=== PATIENT | female | born 1995 | race Caucasian/White ===

== ENCOUNTER 2017-04-21 22:51 | Inpatient (IN) | payer OTHER, MEDICAID ==
[2017-04-22 01:39] LABS: ABSOLUTE BASOPHILS # (AUTO) 0.1 10^3/uL (0.0-0.2); ABSOLUTE LYMPHOCYTES (AUTO) 2.3 10^3/uL (0.5-4.7); ABSOLUTE MONOCYTES (AUTO) 0.8 10^3/uL (0.1-1.4); ABSOLUTE NEUT (AUTO) 8.8 10^3/uL (1.7-8.2); BASOPHILS % (AUTO) 0.6 % (0-2); EOSINOPHILS % (AUTO) 0.4 % (0-6); HEMATOCRIT 55.3 % (36.0-47.0); HEMOGLOBIN 18.2 g/dL (12.0-15.5); HGB HCT DIFFERENCE -0.7; MEAN CORPUSCULAR HEMOGLOBIN 32.9 pg (27.0-33.4); MEAN CORPUSCULAR HGB CONC 32.9 g/dL (32.0-36.0); MEAN CORPUSCULAR VOLUME 100 fl (80-97); MONOCYTES % (AUTO) 6.6 % (3-13); RED BLOOD COUNT 5.52 10^6/uL (3.72-5.28); RED CELL DISTRIBUTION WIDTH 13.4 % (11.5-14.0); SEGMENTED NEUTROPHILS % (AUTO) 73.4 % (42-78)
[2017-04-22 01:40] LABS: APPEARANCE,URINE CLEAR; BILIRUBIN,URINE NEGATIVE (NEGATIVE); GLUCOSE, URINE >=500 mg/dL (NEGATIVE); KETONES,URINE 80 mg/dL (NEGATIVE); LEUKOCYTE ESTERASE,URINE TRACE (NEGATIVE); NITRITE,URINE NEGATIVE (NEGATIVE); PROTEIN,URINE NEGATIVE (NEGATIVE); URINE SPECIFIC GRAVITY 1.028; UROBILINOGEN,URINE NEGATIVE mg/dL (<2.0)
[2017-04-22 01:50] LABS: ALANINE AMINOTRANSFERASE 24 U/L (9-52); ALBUMIN 5.1 g/dL (3.5-5.0); ALKALINE PHOSPHATASE 127 U/L (38-126); ASPARTATE AMINO TRANSFERASE 17 U/L (14-36); BILIRUBIN,DIRECT 0.5 mg/dL (0.0-0.4); BLOOD UREA NITROGEN 14 mg/dL (7-20); CHLORIDE 97 mmol/L (98-107); TOTAL PROTEIN 9.2 g/dL (6.3-8.2)
[2017-04-22 02:03] LABS: POTASSIUM 5.2 mmol/L (3.6-5.0); SODIUM 130.7 mmol/L (137-145)
[2017-04-22 02:13] LABS: ANION GAP 28 (5-19); GLUCOSE 620 mg/dL (75-110)
[2017-04-22] MEDS ORDERED: PANTOPRAZOLE SODIUM 40 MG VIAL IV ONE (02:13)
[2017-04-22] MEDS ORDERED: NORMAL SALINE 1000 ML 1,000 ML IV ONE ×2 (02:13→02:17)
[2017-04-22 02:14] LABS: CARBON DIOXIDE 6 mmol/L (22-30)
--- NOTE | 2017-04-22 02:14 | ER Document Report ---
ED GI/ - General Chief Complaint: Abdominal Pain Stated Complaint: ABDOMINAL PAIN/HEADACHE Time Seen by Provider: 04/22/17 02:03 Notes: Patient is a 21-year-old female that comes emergency department for chief complaint of feeling ill with nausea and stomach pain, frequent belching, and burning in her upper abdomen for the past week. She states she has not been able to eat much and she has lost about 20 pounds. She reports weakness and intermittent lightheadedness. She denies smoking, alcohol, any daily medications. LMP last month. Only past medical history reported is appendectomy. Denies recreational drugs. TRAVEL OUTSIDE OF THE [place] IN LAST 30 DAYS: No - Related Data Allergies/Adverse Reactions: No Known Allergies Allergy (Unverified 06/18/11 04:40) Home Medications: Current Home Medications No Home Medications 04/22/17 [History] Past Medical History - General Information source: Patient - Social History Smoking Status: Never Smoker Frequency of alcohol use: None Drug Abuse: None Lives with: Spouse/Significant other Family History: CAD, DM, Hypertension Patient has suicidal ideation: No Patient has homicidal ideation: No - Medical History Medical History: Negative Neurological Medical History: Denies: Hx Seizures Renal/ Medical History: Denies: Hx Peritoneal Dialysis Past Surgical History: Reports: Hx Appendectomy - Immunizations Immunizations up to date: Yes Hx Diphtheria, Pertussis, Tetanus Vaccination: Yes Review of Systems - Review of Systems Constitutional: No symptoms reported, See HPI EENT: No symptoms reported Cardiovascular: See HPI Respiratory: No symptoms reported Gastrointestinal: See HPI Genitourinary: No symptoms reported Female Genitourinary: No symptoms reported Musculoskeletal: No symptoms reported Skin: No symptoms reported Hematologic/Lymphatic: No symptoms reported Neurological/Psychological: See HPI Physical Exam - Vital signs Vitals: Temp Pulse Resp BP Pulse Ox 97.7 F 118 H 18 132/96 H 97 04/21/17 23:14 04/21/17 23:14 04/21/17 23:14 04/21/17 23:14 04/21/17 23:14 Interpretation: Normal - General General appearance: Other - Patient on well-appearing, she appears pale, cachectic, however she is alert and conversational - HEENT Head: Normocephalic, Atraumatic Eyes: Normal Conjunctiva: Normal Extraocular movements intact: Yes Eyelashes: Normal Pupils: PERRL Sinus: Normal Nasal: Normal Mouth/Lips: Normal Mucous membranes: Dry Pharynx: Normal Neck: Normal - Respiratory Respiratory status: No respiratory distress Chest status: Nontender Breath sounds: Normal Chest palpation: Normal - Cardiovascular Rhythm: Regular, Tachycardia Heart sounds: Normal auscultation, S1 appreciated, S2 appreciated Murmur: No - Abdominal Inspection: Normal Distension: No distension Bowel sounds: Normal Tenderness: Tender - Generalized abdominal tenderness, nonspecific, no guarding , no rebound tenderness Organomegaly: No organomegaly - Back Back: Normal, Nontender - Extremities General upper extremity: Normal inspection, Nontender, Normal color, Normal ROM , Normal temperature General lower extremity: Normal inspection, Nontender, Normal color, Normal ROM , Normal temperature, Normal weight bearing. No: Juan Jose's sign - Neurological Neuro grossly intact: Yes Cognition: Normal Orientation: AAOx4 Ricky Coma Scale Eye Opening: Spontaneous [place] Coma Scale Verbal: Oriented Ricky Coma Scale Motor: Obeys Commands Ricky Coma Scale Total: 15 Speech: Normal Motor strength normal: LUE, RUE, LLE, RLE Sensory: Normal - Psychological Associated symptoms: Normal affect, Normal mood - Skin Skin Temperature: Warm Skin Moisture: Dry Skin Color: Pale Course - Re-evaluation Re-evalutation: Tachycardic, very thin, pale. However she is alert, oriented, conversational. CBC showing elevated hemoglobin, ketones in the urine with elevated specific gravity, giving IVF. Chemistry concerning showing marked hyperglycemia, very low bicarbonate, anion gap that is elevated, consistent with DKA and previously undiagnosed diabetic. Patient will be started on insulin drip, IV fluids, because of patient's appearance, condition, and low bicarbonate patient will also be given a bolus of 1 amp of bicarbonate. Venous blood gas is still pending. This was confirmed with Dr. Pearson. Patient remains unchanged in appearance. Blood gas actually not quite as bad as it could be, shows metabolic acidosis with pH of 7.2. After beginning treatments, tachycardia resolved, patient already improved in appearance and not as pale. Discussed with Dr. Arriola, internal medicine, patient will be admitted to the hospital - Vital Signs Vital signs: Temp Pulse Resp BP Pulse Ox 98.0 F 91 16 103/63 100 04/22/17 05:56 04/22/17 05:56 04/22/17 05:56 04/22/17 05:56 04/22/17 05:56 - Laboratory Result Diagrams: 04/22/17 01:26 04/22/17 04:11 Laboratory results interpreted by me: 04/22/17 04/22/17 04/22/17 01:15 01:26 01:26 WBC 12.0 H RBC 5.52 H Hgb 18.2 H Hct 55.3 H MCV 100 H Absolute Neutrophils 8.8 H VBG pH VBG pCO2 VBG HCO3 Sodium 130.7 L Potassium 5.2 H Chloride 97 L Carbon Dioxide 6 L* Anion Gap 28 H Glucose 620 H* Direct Bilirubin 0.5 H Alkaline Phosphatase 127 H Total Protein 9.2 H Albumin 5.1 H Urine Glucose (UA) >=500 H Urine Ketones 80 H Ur Leukocyte Esterase TRACE H 04/22/17 02:39 WBC RBC Hgb Hct MCV Absolute Neutrophils VBG pH 7.20 L VBG pCO2 26.9 L VBG HCO3 10.2 L Sodium Potassium Chloride Carbon Dioxide Anion Gap Glucose Direct Bilirubin Alkaline Phosphatase Total Protein Albumin Urine Glucose (UA) Urine Ketones Ur Leukocyte Esterase Critical Care Note - Critical Care Note Total time excluding time spent on procedures (mins): 30 - Diabetic ketoacidosis , dehydration Comments: Please allow 30 minutes of critical care time for evaluation, management of patient with diabetic ketoacidosis, treatment with IV fluids, insulin drip, bicarbonate, multiple re-evaluations, consultation and admission to the hospital Discharge - Discharge Clinical Impression: Tachycardia, Dehydration DKA (diabetic ketoacidoses) Qualifiers: Diabetes mellitus type: due to underlying condition Diabetes mellitus complication detail: without coma Qualified Code(s): E08.10 - Diabetes mellitus due to underlying condition with ketoacidosis without coma Admitting Provider: Hospitalist Unit Admitted: IMCU
[2017-04-22] MEDS ORDERED: ONDANSETRON HCL INJ/PF 4 MG/2 ML SDV IV ONE (02:17)
[2017-04-22] MEDS ORDERED: NORMAL SALINE 100 ML with INSULIN REGULAR, HUMAN 100 UNIT IV PRN ×4 (02:18→05:26)
[2017-04-22] MEDS ORDERED: DEXTROSE 5%-WATER 1000 ML 1,000 ML with SODIUM BICARBONATE 50 MEQ IV PRN ×2 (02:21)
[2017-04-22 02:44] LABS: URINE BARBITURATES SCREEN NEGATIVE; URINE METHADONE SCREEN NEGATIVE; URINE OPIATES LOW NEGATIVE; URINE PHENCYCLIDINE SCREEN NEGATIVE
[2017-04-22 02:49] LABS: VENOUS BLOOD BASE EXCESS -15.9 mmol/L; VENOUS BLOOD HCO3 10.2 mmol/L (20-32); VENOUS BLOOD PCO2 26.9 mmHg (35-63); VENOUS BLOOD PH 7.2 (7.30-7.42)
[2017-04-22] MEDS ORDERED: SODIUM BICARBONATE 8.4% INJ 50 MEQ/50 ML DISP.SYRIN ONE (02:50)
[2017-04-22] MEDS ORDERED: INSULIN REG, HUMAN 100 UNIT/ML 3 ML VIAL (PYX) ONE (03:36)
[2017-04-22] MEDS ORDERED: NORMAL SALINE 1000 ML 1,000 ML IV PRN ×2 (04:01→04:15)
[2017-04-22] MEDS ORDERED: GLUCAGON,HUMAN RECOMB 1 MG INJ IM PRN ×3 (04:01→14:25)
[2017-04-22] MEDS ORDERED: DEXTROSE 50%-WATER 25 GM/50 ML DISP.SYRIN IV PRN ×6 (04:01→14:25)
[2017-04-22] MEDS ORDERED: DEXTROSE 40% GEL 15 GM TUBE PO PRN ×6 (04:01→14:25)
[2017-04-22] MEDS ORDERED: MAGNESIUM HYDROXIDE SUSP 30 ML UDCUP PO PRN (04:04)
[2017-04-22] MEDS ORDERED: MAG HYDROX/AL HYDROX/SIMETH SUSP 30 ML UDCUP PO PRN (04:04)
[2017-04-22] MEDS ORDERED: ACETAMINOPHEN 325 MG TABLET PO PRN (04:04)
[2017-04-22] MEDS ORDERED: DEXTROSE 5%-NORMAL SALINE 1,000 ML IV PRN (04:12)
[2017-04-22] MEDS ORDERED: PHARMACY COMMUNICATION ORDER MC SCH (04:15)
--- NOTE | 2017-04-22 04:25 | PDOC H&P ---
History of Present Illness Admission Date/PCP: 04/22/17 03:07 NONE Patient complains of: nausea, epig weight loss History of Present Illness: REJI JOHNSON is a 21 year old female with past medical history remarkable basically only for eczema, who presents to the emergency room for evaluation of approximately 1 week history of nausea, epigastric pain, frequent belching, along with a recent unintentional 20 pound weight loss, despite good appetite. No personal or family history of diabetes mellitus. Patient has been discussed with emergency room nurse practitioner who evaluated the patient. Abdominal discomfort increases occasionally with certain movements. She denies any "sore spots" anywhere on her body. No vomiting, diarrhea or dysuria, or cough. She is currently resting quietly, pain-free. Laboratory results are listed in [employer] and are reviewed. Chest x-ray pending. Social history/personal habits: Single. No children. 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 No use of alcohol tobacco or illicit drugs. No known drug allergies. Home medications none REVIEW OF SYSTEMS: Constitutional: See history and present illness. Eyes: No vision complaints. ENT: No swallowing problems or complaints. Denies hearing loss. Pulmonary: No current complaints. Cardiovascular: No current complaints, including chest pain. Gastrointestinal: See history and present illness. Skin: Mild eczema. Hematologic: Denies easy bruising. Neurologic: No current complaints, including numbness or tingling. Musculoskeletal: No current or chronic joint complaints, such as arthritis. Psychiatric: Denies anxiety or depression. Endocrine: polyuria. Genitourinary: No current complaints, including dysuria. PHYSICAL EXAMINATION: 5 feet 4 inches tall. 31 kg. BMI 11.7 kg/m. Blood pressure 117/81. Pulse 101 and regular. 100% saturation on room air. Respirations are 15 and unlabored. Temperature 97.7. Quite thin otherwise well-developed young female appearing approximately her stated age. Appears somewhat fatigued, and also to feel somewhat under the weather, so to speak. Otherwise, pleasant awake alert and cooperative. Boyfriend is present at her side; patient approves. Female emergency room nurse Tequila is present. Skin is warm and dry. No grossly obvious evidence of rash in areas of skin examined. No subcutaneous nodules palpated. ENT: Hearing grossly normal to normal conversation. Tongue midline on protrusion pink and slightly tacky. Eyes: No scleral icterus. Pupils equal and reactive to light at 4 mm. [place] conjunctivae. Neck is supple and nontender to gentle active range of motion and palpation. Midline trachea. No palpable thyroid nodule mass enlargement or tenderness. Lymphatic: No palpable cervical or clavicular nodes. Psychiatric: Reasonable insight into acute and chronic medical issues. Oriented to time location and why here. Lungs: Auscultation reveals clear and equal breath sounds bilaterally. No use of accessory respiratory muscles. Cardiovascular: Heart regular rate and rhythm, without gallop murmur or rub. No carotid or abdominal aortic bruits. No ankle or pedal edema. Faintly palpable dorsalis pedis pulses. Abdomen:soft slightly distended nontender with positive bowel sounds. Unable to adequately evaluate abdomen for masses or organomegaly due to distention. Extremities: Feet are warm and dry. No calf tenderness to compression. No grossly obvious visual evidence of calf swelling. Gentle manipulation of lower extremities fails to reveal any obvious evidence of injury or instability to knees hips or ankles. Neurologic: Moves upper extremities grossly normally. Patellar reflexes absent. Absent Babinski. Light touch is intact at feet. Dorsiflexion and plantarflexion of feet 5 / 5 and symmetric. Past Medical History Cardiac Medical History: Denies: Congestive Heart Failure, DVT, Myocardial Infarction, Hyperlipidema, Hypertension, Pulmonary Embolism Pulmonary Medical History: Denies: Asthma, Chronic Obstructive Pulmonary Disease (COPD) EENT Medical History: Denies: Eyes, Ears, Throat Neurological Medical History: Denies: Hemorrhagic CVA, Ischemic CVA, Seizures Endocrine Medical History: Denies: Hyperthyroidism, Hypothyroidism Renal/ Medical History: Reports: None GI Medical History: Denies: Cirrhosis, Gastroesophageal Reflux Disease, Hepatitis, Peptic Ulcer Disease Musculoskeltal Medical History: Denies: Arthritis Skin Medical History: Reports: Eczema - Mild Psychiatric Medical History: Denies: Alcohol Dependency, Depression, General Anxiety Disorder, Substance Abuse, Tobacco Dependency Hematology: Reports: None Infectious Medical History: Denies: Clostridium Difficile, Hepatitis B, Hepatitis C, Methicillin- Resistant Staph Aureus Past Surgical History Past Surgical History: Reports: Appendectomy, Tonsillectomy Social History Information Source: Patient, Emergency Med Personnel, [facility] Records Smoking Status: Unknown if Ever Smoked Frequency of Alcohol Use: None Drugs: None - Advance Directive Resuscitation Status: Full Code Surrogate healthcare decision maker:: Boyfriend's mother. Family History Family History: CAD, DM, Hypertension Parental Family History Reviewed: Yes - Uncertain health status of parents. Children Family History Reviewed: NA Sibling(s) Family History Reviewed.: Yes - Healthy Medication/Allergy Home Medications: Isopropyl Alcohol [Alcoh-Wipe] 1 each ASDIR PRN #100 towelette 04/26/17 Pen Needle, Diabetic [Insulin Pen Needle] 1 each ASDIR PRN #10 dis.needle RX: Acetaminophen [Tylenol Soln 325 mg/10.15 ml Udcup] 650 mg PO Q4HP PRN udc 04/26/17 RX: Insulin Glargine,Hum.rec.anlog [Lantus Insulin 100 Unit/mL] 20 unit SUBCUT Q12 #10 insuln.pen 04/26/17 RX: Insulin Lispro [Humalog Insulin (Lispro) 100 unit/mL] 8 unit SUBCUT AC #100 unit 04/26/17 Allergies/Adverse Reactions: No Known Allergies Allergy (Unverified 06/18/11 04:40) Physical Exam Vital Signs: Temp Pulse Resp BP Pulse Ox 97.7 F 118 H 13 117/81 100 04/21/17 23:14 04/21/17 23:14 04/22/17 03:45 04/22/17 03:01 04/22/17 03:45 Assessment & Plan - Diagnosis (1) Abnormal urinalysis Is this a current diagnosis for this admission?: YesPlan: Blood and urine cultures. Given her DKA, will also start Rocephin. (2) DKA (diabetic ketoacidoses) Qualifiers: Diabetes mellitus type: due to underlying condition Diabetes mellitus complication detail: without coma Qualified Code(s): E08.10 - Diabetes mellitus due to underlying condition with ketoacidosis without coma Is this a current diagnosis for this admission?: YesPlan: Patient will be admitted under DKA protocol. Insulin drip. Vigorous fluid hydration. Q 4 hours chemistry 7. Hourly Accu-Cheks. Addition of dextrose to intravenous fluid once serum glucose and/or Accu-Cheks 275 or less. Patient is full code. I have strongly encouraged patient not to get out of bed without notifying staff , to avoid a fall with injury. Knee high SCDs for DVT prophylaxis, along with subcutaneous heparin. Impression and plans were discussed with patient , who concurs. Time spent in evaluation and management of patient: 58 critical-care minutes. (3) DVT prophylaxis Is this a current diagnosis for this admission?: Yes (4) Weight loss, unintentional Is this a current diagnosis for this admission?: YesPlan: Dietary consult. - Inpatient Certification Based on my medical assessment, after consideration of the patient's comorbidities, presenting symptoms, or acuity I expect that the services needed warrant INPATIENT care.: Yes I certify that my determination is in accordance with my understanding of Medicare's requirements for reasonable and necessary INPATIENT services [42 CFR 412.3e].: Yes Medical Necessity: Need Close Monitoring Due to Risk of Patient Decompensation, Need For IV Fluids, Need For Continuous Telemetry Monitoring, Risk of Diagnosis Which Will Require Inpatient Eval/Care/Monitoring Post Hospital Care: D/C or Transfer Summary
[2017-04-22] MEDS ORDERED: CEFTRIAXONE 1 GM/D5W RTU 1 GM/50 ML RTUPB IV ONE (04:30)
[2017-04-22 04:57] LABS: BLOOD UREA NITROGEN 11 mg/dL (7-20); CALCIUM 7.1 mg/dL (8.4-10.2); CHLORIDE 114 mmol/L (98-107); GLUCOSE 322 mg/dL (75-110); MAGNESIUM 1.6 mg/dL (1.6-2.3)
[2017-04-22 05:03] LABS: ANION GAP 18 (5-19)
[2017-04-22 05:07] LABS: POTASSIUM 4.2 mmol/L (3.6-5.0)
[2017-04-22 05:13] LABS: CARBON DIOXIDE 5 mmol/L (22-30)
--- NOTE | 2017-04-22 05:33 | RADIOLOGY REPORT (SQ) ---
EXAM DESCRIPTION: CHEST SINGLE VIEW COMPLETED DATE/TIME: 04/22/2017 4:59 am REASON FOR STUDY: DKA COMPARISON: 07/02/2012. EXAM PARAMETERS: NUMBER OF VIEWS: One view. TECHNIQUE: Single frontal radiographic view of the chest acquired. RADIATION DOSE: NA LIMITATIONS: None. FINDINGS: LUNGS AND PLEURA: No opacities, masses or pneumothorax. No pleural effusion. Prominent arnaldo ng volumes. MEDIASTINUM AND HILAR STRUCTURES: No masses. Contour normal. HEART AND VASCULAR STRUCTURES: Heart normal in size. Normal vasculature. BONES: No acute findings. HARDWARE: None in the chest. OTHER: No other significant finding. IMPRESSION: NO ACUTE RADIOGRAPHIC FINDING IN THE CHEST. TECHNICAL DOCUMENTATION: JOB ID: [id number]
[2017-04-22] MEDS ORDERED: POTASSI CL 20 MEQ/50 ML RIDER 20 MEQ/50 ML RTUPB IV ONE (06:00)
[2017-04-22] MEDS ORDERED: MAGNESIUM SULFATE/D5W 1 GM/100 ML RTUPB IV ONE (06:00)
[2017-04-22 08:53] LABS: ABSOLUTE BASOPHILS # (AUTO) 0.1 10^3/uL (0.0-0.2); ABSOLUTE EOSINOPHILS # (AUTO) 0.1 10^3/uL (0.0-0.6); ABSOLUTE LYMPHOCYTES (AUTO) 2.2 10^3/uL (0.5-4.7); ABSOLUTE NEUT (AUTO) 5.5 10^3/uL (1.7-8.2); BASOPHILS % (AUTO) 0.7 % (0-2); EOSINOPHILS % (AUTO) 1.5 % (0-6); HEMATOCRIT 39.5 % (36.0-47.0); HGB HCT DIFFERENCE 1.9; LYMPHOCYTES % (AUTO) 24.8 % (13-45); MEAN CORPUSCULAR HGB CONC 34.9 g/dL (32.0-36.0); MEAN CORPUSCULAR VOLUME 97 fl (80-97); MONOCYTES % (AUTO) 10.9 % (3-13); RED BLOOD COUNT 4.06 10^6/uL (3.72-5.28); RED CELL DISTRIBUTION WIDTH 13.1 % (11.5-14.0); SEGMENTED NEUTROPHILS % (AUTO) 62.1 % (42-78); WHITE BLOOD COUNT 8.9 10^3/uL (4.0-10.5)
[2017-04-22 09:10] LABS: ANION GAP 12 (5-19); BLOOD UREA NITROGEN 9 mg/dL (7-20); CALCIUM 7.4 mg/dL (8.4-10.2); CARBON DIOXIDE 13 mmol/L (22-30); CHLORIDE 112 mmol/L (98-107); CHOLESTEROL 196.09 mg/dL (0-200); CREATININE RESULT 0.38 mg/dL (0.52-1.25); Direct HDL 31 mg/dL (>40); GLUCOSE 194 mg/dL (75-110); POTASSIUM 3.7 mmol/L (3.6-5.0); SODIUM 137.3 mmol/L (137-145); TRIGLYCERIDES 241 mg/dL (<150)
[2017-04-22 09:11] LABS: HEMOGLOBIN 13.8 g/dL (12.0-15.5)
[2017-04-22 09:20] LABS: DIRECT LDL 106 mg/dL (<100)
[2017-04-22 09:21] LABS: VLDL CHOLESTEROL 48.2 mg/dL (10-31)
[2017-04-22] MEDS ORDERED: POTASSIUM CHLORIDE 10 MEQ TABLET.SA PO ONE (10:00)
[2017-04-22] MEDS: HEPARIN SOD (PORCINE) 5,000 UNIT/ML 1 ML SYRINGE SUBCUT SCH ×2 (10:13→21:34)
[2017-04-22] MEDS: DOCUSATE SODIUM 100 MG CAPSULE PO SCH (10:13)
[2017-04-22] MEDS ORDERED: POTASSIUM CHLORIDE 20 MEQ/50 ML RTU IV SCH (12:00)
[2017-04-22 12:41] LABS: ANION GAP 8 (5-19); BLOOD UREA NITROGEN 6 mg/dL (7-20); CALCIUM 7.4 mg/dL (8.4-10.2); CARBON DIOXIDE 16 mmol/L (22-30); CHLORIDE 115 mmol/L (98-107); CREATININE RESULT 0.32 mg/dL (0.52-1.25); GLUCOSE 97 mg/dL (75-110); POTASSIUM 3.1 mmol/L (3.6-5.0)
[2017-04-22 16:15] LABS: ANION GAP 11 (5-19); BLOOD UREA NITROGEN 8 mg/dL (7-20); CALCIUM 7.7 mg/dL (8.4-10.2); CARBON DIOXIDE 14 mmol/L (22-30); CHLORIDE 111 mmol/L (98-107); CREATININE RESULT 0.53 mg/dL (0.52-1.25); GLUCOSE 271 mg/dL (75-110); POTASSIUM 3.8 mmol/L (3.6-5.0)
[2017-04-22] MEDS: POTASSI CL 20 MEQ/50 ML RIDER 20 MEQ/50 ML RTUPB IV SCH ×3 (16:16→19:44)
[2017-04-22] MEDS: INSULIN LISPRO 100 UNIT/ML 3 ML VIAL SUBCUT PRN ×2 (16:28→21:33)
[2017-04-22 20:49] LABS: ANION GAP 11 (5-19); BLOOD UREA NITROGEN 10 mg/dL (7-20); CALCIUM 8.4 mg/dL (8.4-10.2); CARBON DIOXIDE 16 mmol/L (22-30); CHLORIDE 106 mmol/L (98-107); CREATININE RESULT 0.75 mg/dL (0.52-1.25); GLUCOSE 339 mg/dL (75-110); POTASSIUM 4.1 mmol/L (3.6-5.0); SODIUM 132.9 mmol/L (137-145)
[2017-04-22] MEDS: CEFTRIAXONE 1 GM/D5W RTU 1 GM/50 ML RTUPB IV SCH (21:34)
[2017-04-22] MEDS ORDERED: INSULIN GLARGINE,HUM.REC.ANLOG 300 UNIT/3 ML INSULN.PEN SUBCUT SCH (22:00)
[2017-04-22] MEDS: NORMAL SALINE 1000 ML 1,000 ML IV PRN (22:16)
[2017-04-23 00:51] LABS: ANION GAP 8 (5-19); BLOOD UREA NITROGEN 13 mg/dL (7-20); CALCIUM 8.2 mg/dL (8.4-10.2); CARBON DIOXIDE 18 mmol/L (22-30); CHLORIDE 110 mmol/L (98-107); CREATININE RESULT 0.44 mg/dL (0.52-1.25); GLUCOSE 209 mg/dL (75-110); POTASSIUM 3.5 mmol/L (3.6-5.0); SODIUM 135.5 mmol/L (137-145)
[2017-04-23] MEDS ORDERED: POTASSIUM CHLORIDE 20 MEQ/15 ML UDCUP PO ONE ×2 (01:45→03:30)
[2017-04-23 05:33] LABS: ANION GAP 8 (5-19); BLOOD UREA NITROGEN 10 mg/dL (7-20); CALCIUM 8.4 mg/dL (8.4-10.2); CARBON DIOXIDE 22 mmol/L (22-30); CHLORIDE 106 mmol/L (98-107); CREATININE RESULT 0.41 mg/dL (0.52-1.25); GLUCOSE 161 mg/dL (75-110); POTASSIUM 4.4 mmol/L (3.6-5.0); SODIUM 135.6 mmol/L (137-145)
[2017-04-23] MEDS: INSULIN LISPRO 100 UNIT/ML 3 ML VIAL SUBCUT PRN ×3 (08:22→22:18)
[2017-04-23 09:10] LABS: ANION GAP 9 (5-19); BLOOD UREA NITROGEN 6 mg/dL (7-20); CALCIUM 8.1 mg/dL (8.4-10.2); CARBON DIOXIDE 21 mmol/L (22-30); CHLORIDE 106 mmol/L (98-107); CREATININE RESULT 0.35 mg/dL (0.52-1.25); GLUCOSE 184 mg/dL (75-110); SODIUM 135.9 mmol/L (137-145)
[2017-04-23 11:34] LABS: POTASSIUM 3.3 mmol/L (3.6-5.0)
[2017-04-23] MEDS: HEPARIN SOD (PORCINE) 5,000 UNIT/ML 1 ML SYRINGE SUBCUT SCH ×2 (11:43→21:16)
[2017-04-23] MEDS: DOCUSATE SODIUM 100 MG CAPSULE PO SCH (11:43)
[2017-04-23] MEDS ORDERED: INSULIN REG, HUMAN 100 UNIT/ML 3 ML VIAL (PYX) SUBCUT ONE (12:45)
[2017-04-23 13:09] LABS: ANION GAP 9 (5-19); BLOOD UREA NITROGEN 8 mg/dL (7-20); CALCIUM 8.5 mg/dL (8.4-10.2); CARBON DIOXIDE 21 mmol/L (22-30); CHLORIDE 104 mmol/L (98-107); CREATININE RESULT 0.51 mg/dL (0.52-1.25); SODIUM 133.5 mmol/L (137-145)
[2017-04-23] MEDS ORDERED: INSULIN LISPRO 100 UNIT/ML 3 ML VIAL SUBCUT ONE (13:30)
[2017-04-23 13:44] LABS: GLUCOSE 498 mg/dL (75-110); POTASSIUM 4.6 mmol/L (3.6-5.0)
[2017-04-23] MEDS ORDERED: HUM INSULIN NPH/REG INSULIN HM 100 UNIT/1 ML 3 ML SUBCUT SCH (16:00)
--- NOTE | 2017-04-23 16:43 | PDOC PROGRESS REPORT ---
Subjective Progress Note for:: 04/23/17 Subjective:: Patient was seen on morning rounds. She is resting comfortably in bed. She denies any problems overnight. She was able to be off the IV insulin after her gap closed. Chemstrips are fairly well controlled overnight. She denies any shortness of breath, cough, dyspnea or chest pain. She denies any nausea, abdominal pain, dysuria or diarrhea. She denies any significant arthralgias or myalgias. She will undergo diabetic education in education and nutrition today. We discussed signs and symptoms of hypo-and hyperglycemia. We will we will have to transition her insulin therapy to 70/30 due to costs. Patient fortunately has no health insurance. Nursing will continue to assist patient in diabetic testing. Physical Exam Vital Signs: Temp Pulse Resp BP Pulse Ox 98.1 F 87 14 100/64 100 04/23/17 06:59 04/23/17 07:00 04/23/17 06:59 04/23/17 06:59 04/23/17 06:59 Intake & Output 04/22/17 04/23/17 04/24/17 06:59 06:59 06:59 Intake Total 303 3600 740 Output Total 2600 450 Balance 303 1000 290 Weight 32.9 kg 37.8 kg General appearance: PRESENT: no acute distress, thin, well-developed Head exam: PRESENT: atraumatic, normocephalic Eye exam: PRESENT: conjunctiva pink, EOMI, PERRLA. ABSENT: scleral icterus Ear exam: PRESENT: normal external ear exam Mouth exam: PRESENT: moist, tongue midline Neck exam: ABSENT: carotid bruit, JVD, lymphadenopathy, thyromegaly Respiratory exam: PRESENT: clear to auscultation michelle. ABSENT: rales, rhonchi, wheezes Cardiovascular exam: PRESENT: RRR. ABSENT: diastolic murmur, rubs, systolic murmur Pulses: PRESENT: normal dorsalis pedis pul Vascular exam: PRESENT: normal capillary refill GI/Abdominal exam: PRESENT: normal bowel sounds, soft. ABSENT: distended, guarding, mass, organolmegaly, rebound, tenderness Rectal exam: PRESENT: deferred Extremities exam: PRESENT: full ROM. ABSENT: calf tenderness, clubbing, pedal edema Neurological exam: PRESENT: alert, awake, oriented to person, oriented to place , oriented to time, oriented to situation, CN II-XII grossly intact. ABSENT: motor sensory deficit Psychiatric exam: PRESENT: appropriate affect, normal mood. ABSENT: homicidal ideation, suicidal ideation Skin exam: PRESENT: dry, intact, warm. ABSENT: cyanosis, rash Results Laboratory Results: 04/22/17 08:21 04/22/17 04/23/17 04/23/17 20:07 00:22 04:08 Sodium 132.9 L 135.5 L 135.6 L Potassium 4.1 3.5 L 4.4 Chloride 106 110 H 106 Carbon Dioxide 16 L 18 L 22 Anion Gap 11 8 8 BUN 10 13 10 Creatinine 0.75 0.44 L 0.41 L Est GFR ( Amer) > 60 > 60 > 60 Est GFR (Non-Af Amer) > 60 > 60 > 60 Glucose 339 H 209 H 161 H Calcium 8.4 8.2 L 8.4 04/23/17 04/23/17 08:30 12:07 Sodium 135.9 L 133.5 L Potassium 3.3 L D 4.6 D Chloride 106 104 Carbon Dioxide 21 L 21 L Anion Gap 9 9 BUN 6 L 8 Creatinine 0.35 L 0.51 L Est GFR ( Amer) > 60 > 60 Est GFR (Non-Af Amer) > 60 > 60 Glucose 184 H 498 H* Calcium 8.1 L 8.5 Impressions: Chest X-Ray 04/22/17 00:00 IMPRESSION: NO ACUTE RADIOGRAPHIC FINDING IN THE CHEST. Assessment & Plan - Diagnosis (1) DKA (diabetic ketoacidoses) Qualifiers: Diabetes mellitus type: due to underlying condition Diabetes mellitus complication detail: without coma Qualified Code(s): E08.10 - Diabetes mellitus due to underlying condition with ketoacidosis without coma Is this a current diagnosis for this admission?: YesPlan: Patient is presently off IV insulin. She was fluid resuscitated this is stopped as well. Bicarb is now normal. She will initiated on Lantus insulin last evening however this would be changed to insulin 70/30, due to patient not having any health insurance coverage. The Department of Health no longer assists patient without insurance with their diabetic medication or testing materials. (2) Dehydration Is this a current diagnosis for this admission?: YesPlan: Resolved with IV hydration. She is tolerating a regular diabetic diet (3) Tachycardia Is this a current diagnosis for this admission?: YesPlan: Resolved secondary to dehydration (4) DVT prophylaxis Is this a current diagnosis for this admission?: Yes (5) Protein-calorie malnutrition, moderate Is this a current diagnosis for this admission?: YesPlan: Patient claims she eats well. She states she has always been small. We will continue to monitor - Time Time Spent with patient: 25-34 minutes Critical Time spent with patient: 25-34 minutes Medications reviewed and adjusted accordingly: Yes Anticipated discharge: Home
[2017-04-23 17:05] LABS: ANION GAP 9 (5-19); BLOOD UREA NITROGEN 9 mg/dL (7-20); CALCIUM 8.4 mg/dL (8.4-10.2); CARBON DIOXIDE 23 mmol/L (22-30); CHLORIDE 104 mmol/L (98-107); CREATININE RESULT 0.51 mg/dL (0.52-1.25); GLUCOSE 218 mg/dL (75-110); POTASSIUM 4.2 mmol/L (3.6-5.0)
[2017-04-23 20:17] LABS: ANION GAP 8 (5-19); BLOOD UREA NITROGEN 12 mg/dL (7-20); CALCIUM 8.7 mg/dL (8.4-10.2); CARBON DIOXIDE 24 mmol/L (22-30); CHLORIDE 102 mmol/L (98-107); CREATININE RESULT 0.44 mg/dL (0.52-1.25); GLUCOSE 220 mg/dL (75-110); SODIUM 134.2 mmol/L (137-145)
[2017-04-23] MEDS: CEFTRIAXONE 1 GM/D5W RTU 1 GM/50 ML RTUPB IV SCH (21:16)
[2017-04-23] MEDS: NORMAL SALINE 1000 ML 1,000 ML IV PRN (22:00)
[2017-04-23] MEDS ORDERED: INSULIN GLARGINE,HUM.REC.ANLOG 300 UNIT/3 ML INSULN.PEN SUBCUT SCH (22:00)
[2017-04-24 00:49] LABS: ANION GAP 8 (5-19); BLOOD UREA NITROGEN 12 mg/dL (7-20); CALCIUM 8.8 mg/dL (8.4-10.2); CARBON DIOXIDE 25 mmol/L (22-30); CHLORIDE 104 mmol/L (98-107); CREATININE RESULT 0.43 mg/dL (0.52-1.25); GLUCOSE 263 mg/dL (75-110); POTASSIUM 3.8 mmol/L (3.6-5.0); SODIUM 137.3 mmol/L (137-145)
[2017-04-24 04:39] LABS: ANION GAP 10 (5-19); BLOOD UREA NITROGEN 12 mg/dL (7-20); CALCIUM 8.7 mg/dL (8.4-10.2); CARBON DIOXIDE 23 mmol/L (22-30); CHLORIDE 104 mmol/L (98-107); CREATININE RESULT 0.39 mg/dL (0.52-1.25); GLUCOSE 308 mg/dL (75-110); SODIUM 136.8 mmol/L (137-145)
[2017-04-24] MEDS: HUM INSULIN NPH/REG INSULIN HM 100 UNIT/1 ML 3 ML SUBCUT SCH ×2 (07:59→15:15)
[2017-04-24] MEDS: INSULIN LISPRO 100 UNIT/ML 3 ML VIAL SUBCUT PRN ×3 (07:59→22:26)
[2017-04-24] MEDS ORDERED: GLUCAGON,HUMAN RECOMB 1 MG INJ IM PRN (09:25)
[2017-04-24] MEDS ORDERED: DEXTROSE 50%-WATER 25 GM/50 ML DISP.SYRIN IV PRN ×2 (09:25)
[2017-04-24] MEDS ORDERED: DEXTROSE 40% GEL 15 GM TUBE PO PRN ×2 (09:25)
[2017-04-24 09:32] LABS: ANION GAP 9 (5-19); BLOOD UREA NITROGEN 10 mg/dL (7-20); CALCIUM 8.7 mg/dL (8.4-10.2); CARBON DIOXIDE 23 mmol/L (22-30); CHLORIDE 102 mmol/L (98-107); CREATININE RESULT 0.37 mg/dL (0.52-1.25); GLUCOSE 319 mg/dL (75-110); MAGNESIUM 1.9 mg/dL (1.6-2.3); POTASSIUM 3.3 mmol/L (3.6-5.0); SODIUM 133.8 mmol/L (137-145)
[2017-04-24] MEDS: DOCUSATE SODIUM 100 MG CAPSULE PO SCH (09:38)
[2017-04-24] MEDS: HEPARIN SOD (PORCINE) 5,000 UNIT/ML 1 ML SYRINGE SUBCUT SCH ×2 (09:38→21:20)
[2017-04-24] MEDS ORDERED: POTASSIUM CHLORIDE 10 MEQ TABLET.SA PO SCH (10:00)
[2017-04-24] MEDS ORDERED: ACETAMINOPHEN SOLN 325 MG/10.15 ML UDCUP PO PRN (10:14)
[2017-04-24] MEDS: POTASSI CL 20 MEQ/50 ML RIDER 50 ML IV SCH ×3 (10:52→15:05)
[2017-04-24] MEDS ORDERED: INSULIN LISPRO 100 UNIT/ML 3 ML VIAL SUBCUT ONE (12:00)
[2017-04-24 13:38] LABS: ANION GAP 13 (5-19); BLOOD UREA NITROGEN 10 mg/dL (7-20); CALCIUM 8.6 mg/dL (8.4-10.2); CARBON DIOXIDE 21 mmol/L (22-30); CHLORIDE 100 mmol/L (98-107); CREATININE RESULT 0.46 mg/dL (0.52-1.25); POTASSIUM 4.2 mmol/L (3.6-5.0); SODIUM 133.5 mmol/L (137-145)
[2017-04-24 14:05] LABS: GLUCOSE 447 mg/dL (75-110)
[2017-04-24] MEDS: INSULIN REG, HUMAN 100 UNIT/ML 3 ML VIAL (PYX) SUBCUT SCH (15:16)
[2017-04-24 16:23] LABS: ANION GAP 11 (5-19); BLOOD UREA NITROGEN 11 mg/dL (7-20); CALCIUM 8.8 mg/dL (8.4-10.2); CARBON DIOXIDE 22 mmol/L (22-30); CHLORIDE 103 mmol/L (98-107); CREATININE RESULT 0.41 mg/dL (0.52-1.25); GLUCOSE 286 mg/dL (75-110); POTASSIUM 4.5 mmol/L (3.6-5.0); SODIUM 136.2 mmol/L (137-145)
--- NOTE | 2017-04-24 16:24 | PDOC PROGRESS REPORT ---
Subjective Progress Note for:: 04/24/17 Subjective:: Patient was seen on morning rounds. She is resting comfortably in bed. She denies any problems overnight. She was seen nursing diabetic educatio. She denies any shortness of breath, cough, dyspnea or chest pain. She denies any nausea, abdominal pain, dysuria or diarrhea. She denies any significant arthralgias or myalgias. She will undergo diabetic education in education and nutrition today. We discussed signs and symptoms of hypo-and hyperglycemia. We had to transition her insulin therapy to 70/30 due to costs. She has had higher than desired chemstrips. We have increased the dose of 70/30 and added preprandial short acting insulin prior to meals. Patient fortunately has no health insurance. Nursing will continue to assist patient in diabetic testing. Physical Exam Vital Signs: Temp Pulse Resp BP Pulse Ox 97.6 F 95 16 97/52 L 100 04/24/17 11:25 04/24/17 14:00 04/24/17 11:25 04/24/17 11:25 04/24/17 11:25 Intake & Output 04/23/17 04/24/17 04/25/17 06:59 06:59 06:59 Intake Total 3600 2840 Output Total 2600 4750 Balance 1000 -1910 Weight 39.3 kg General appearance: PRESENT: no acute distress, thin, well-developed, well- nourished Head exam: PRESENT: atraumatic, normocephalic Eye exam: PRESENT: conjunctiva pink, EOMI, PERRLA. ABSENT: scleral icterus Ear exam: PRESENT: normal external ear exam Mouth exam: PRESENT: moist, tongue midline Neck exam: ABSENT: carotid bruit, JVD, lymphadenopathy, thyromegaly Respiratory exam: PRESENT: clear to auscultation michelle. ABSENT: rales, rhonchi, wheezes Cardiovascular exam: PRESENT: RRR. ABSENT: diastolic murmur, rubs, systolic murmur Pulses: PRESENT: normal dorsalis pedis pul Vascular exam: PRESENT: normal capillary refill GI/Abdominal exam: PRESENT: normal bowel sounds, soft. ABSENT: distended, guarding, mass, organolmegaly, rebound, tenderness Rectal exam: PRESENT: deferred Extremities exam: PRESENT: full ROM. ABSENT: calf tenderness, clubbing, pedal edema Neurological exam: PRESENT: alert, awake, oriented to person, oriented to place , oriented to time, oriented to situation, CN II-XII grossly intact. ABSENT: motor sensory deficit Psychiatric exam: PRESENT: appropriate affect, normal mood. ABSENT: homicidal ideation, suicidal ideation Results Laboratory Results: 04/22/17 08:21 04/23/17 04/23/17 04/24/17 16:02 19:51 00:22 Sodium 136.0 L 134.2 L 137.3 Potassium 4.2 4.0 3.8 Chloride 104 102 104 Carbon Dioxide 23 24 25 Anion Gap 9 8 8 BUN 9 12 12 Creatinine 0.51 L 0.44 L 0.43 L Est GFR ( Amer) > 60 > 60 > 60 Est GFR (Non-Af Amer) > 60 > 60 > 60 Glucose 218 H 220 H 263 H Calcium 8.4 8.7 8.8 Magnesium 04/24/17 04/24/17 04/24/17 04:14 08:13 13:05 Sodium 136.8 L 133.8 L 133.5 L Potassium 4.0 3.3 L 4.2 Chloride 104 102 100 Carbon Dioxide 23 23 21 L Anion Gap 10 9 13 BUN 12 10 10 Creatinine 0.39 L 0.37 L 0.46 L Est GFR ( Amer) > 60 > 60 > 60 Est GFR (Non-Af Amer) > 60 > 60 > 60 Glucose 308 H 319 H 447 H* Calcium 8.7 8.7 8.6 Magnesium 1.9 Impressions: Chest X-Ray 04/22/17 00:00 IMPRESSION: NO ACUTE RADIOGRAPHIC FINDING IN THE CHEST. Assessment & Plan - Diagnosis (1) New onset type 1 diabetes mellitus, uncontrolled Is this a current diagnosis for this admission?: YesPlan: Patient was on lantus now 70/30. We have increased the dose and added short acting humalog prior to meals and sliding scale coverage. (2) DKA (diabetic ketoacidoses) Qualifiers: Diabetes mellitus type: due to underlying condition Diabetes mellitus complication detail: without coma Qualified Code(s): E08.10 - Diabetes mellitus due to underlying condition with ketoacidosis without coma Is this a current diagnosis for this admission?: YesPlan: Patient is presently off IV insulin. She was fluid resuscitated this is stopped as well. Bicarb is now normal. She was however this would be changed to insulin 70/30, due to patient not having any health insurance coverage. The Department of Health no longer assists patient without insurance with their diabetic medication or testing materials. (3) Dehydration Is this a current diagnosis for this admission?: YesPlan: Resolved with IV hydration. She is tolerating a regular diabetic diet (4) Tachycardia Is this a current diagnosis for this admission?: YesPlan: Resolved secondary to dehydration (5) DVT prophylaxis Is this a current diagnosis for this admission?: Yes (6) Protein-calorie malnutrition, moderate Is this a current diagnosis for this admission?: YesPlan: Patient claims she eats well. She states she has always been small. We will continue to monitor - Time Time Spent with patient: 25-34 minutes Critical Time spent with patient: 15-24 minutes Medications reviewed and adjusted accordingly: Yes
[2017-04-24] MEDS: CEFTRIAXONE 1 GM/D5W RTU 1 GM/50 ML RTUPB IV SCH (21:20)
[2017-04-25 05:22] LABS: ABSOLUTE BASOPHILS # (AUTO) 0.1 10^3/uL (0.0-0.2); ABSOLUTE EOSINOPHILS # (AUTO) 0.2 10^3/uL (0.0-0.6); ABSOLUTE LYMPHOCYTES (AUTO) 2.2 10^3/uL (0.5-4.7); ABSOLUTE MONOCYTES (AUTO) 0.6 10^3/uL (0.1-1.4); EOSINOPHILS % (AUTO) 3.6 % (0-6); HEMATOCRIT 38.9 % (36.0-47.0); HEMOGLOBIN 13.2 g/dL (12.0-15.5); HGB HCT DIFFERENCE 0.7; LYMPHOCYTES % (AUTO) 36.5 % (13-45); MEAN CORPUSCULAR HEMOGLOBIN 33.4 pg (27.0-33.4); MEAN CORPUSCULAR VOLUME 98 fl (80-97); MONOCYTES % (AUTO) 9.9 % (3-13); RED BLOOD COUNT 3.97 10^6/uL (3.72-5.28); WHITE BLOOD COUNT 6.1 10^3/uL (4.0-10.5)
[2017-04-25 05:31] LABS: ANION GAP 8 (5-19); BLOOD UREA NITROGEN 12 mg/dL (7-20); CALCIUM 8.9 mg/dL (8.4-10.2); CARBON DIOXIDE 26 mmol/L (22-30); CHLORIDE 101 mmol/L (98-107); GLUCOSE 270 mg/dL (75-110); MAGNESIUM 1.9 mg/dL (1.6-2.3); POTASSIUM 4.2 mmol/L (3.6-5.0); SODIUM 134.6 mmol/L (137-145)
[2017-04-25] MEDS ORDERED: HUM INSULIN NPH/REG INSULIN HM 100 UNIT/1 ML 3 ML SUBCUT SCH (08:00)
[2017-04-25] MEDS: INSULIN REG, HUMAN 100 UNIT/ML 3 ML VIAL (PYX) SUBCUT SCH (08:24)
[2017-04-25] MEDS: INSULIN LISPRO 100 UNIT/ML 3 ML VIAL SUBCUT PRN ×4 (08:24→21:49)
[2017-04-25] MEDS: HEPARIN SOD (PORCINE) 5,000 UNIT/ML 1 ML SYRINGE SUBCUT SCH ×2 (09:25→21:49)
[2017-04-25] MEDS: DOCUSATE SODIUM 100 MG CAPSULE PO SCH (09:29)
[2017-04-25] MEDS ORDERED: INSULIN REG, HUMAN 100 UNIT/ML 3 ML VIAL (PYX) SUBCUT SCH (16:00)
--- NOTE | 2017-04-25 17:21 | PDOC PROGRESS REPORT ---
Subjective Progress Note for:: 04/25/17 Subjective:: Patient was seen on morning rounds. She is resting comfortably in bed. She denies any problems overnight. She was seen nursing diabetic educatio. She denies any shortness of breath, cough, dyspnea or chest pain. She denies any nausea, abdominal pain, dysuria or diarrhea. She denies any significant arthralgias or myalgias. She will undergo diabetic education in education and nutrition today. We discussed signs and symptoms of hypo-and hyperglycemia. We had to transition her insulin therapy to 70/30 due to costs. She has had higher than desired chemstrips. We have recently learned she does have Medicaid Physical Exam Vital Signs: Temp Pulse Resp BP Pulse Ox 98.0 F 85 14 89/44 L 100 04/25/17 16:25 04/25/17 16:25 04/25/17 16:25 04/25/17 16:25 04/25/17 16:25 Intake & Output 04/24/17 04/25/17 04/26/17 06:59 06:59 06:59 Intake Total 2840 1201 Output Total 4750 4700 Balance -1910 -3499 Weight 39.3 kg 41.6 kg General appearance: PRESENT: no acute distress, thin, well-developed, well- nourished Head exam: PRESENT: atraumatic, normocephalic Eye exam: PRESENT: conjunctiva pink, EOMI, PERRLA. ABSENT: scleral icterus Ear exam: PRESENT: bleeding Mouth exam: PRESENT: moist, tongue midline Neck exam: ABSENT: carotid bruit, JVD, lymphadenopathy, thyromegaly Respiratory exam: PRESENT: clear to auscultation michelle. ABSENT: rales, rhonchi, wheezes Cardiovascular exam: PRESENT: RRR. ABSENT: diastolic murmur, rubs, systolic murmur Pulses: PRESENT: normal dorsalis pedis pul Vascular exam: PRESENT: normal capillary refill GI/Abdominal exam: PRESENT: normal bowel sounds, soft. ABSENT: distended, guarding, mass, organolmegaly, rebound, tenderness Rectal exam: PRESENT: deferred Extremities exam: PRESENT: full ROM. ABSENT: calf tenderness, clubbing, pedal edema Neurological exam: PRESENT: alert, awake, oriented to person, oriented to place , oriented to time, oriented to situation, CN II-XII grossly intact. ABSENT: motor sensory deficit Psychiatric exam: PRESENT: appropriate affect, normal mood. ABSENT: homicidal ideation, suicidal ideation Skin exam: PRESENT: abrasion Results Laboratory Results: 04/25/17 04:28 04/25/17 04:28 04/25/17 04/25/17 04:28 04:28 WBC 6.1 RBC 3.97 Hgb 13.2 Hct 38.9 MCV 98 H MCH 33.4 MCHC 34.0 RDW 13.0 Plt Count 198 Seg Neutrophils % 49.0 Lymphocytes % 36.5 Monocytes % 9.9 Eosinophils % 3.6 Basophils % 1.0 Absolute Neutrophils 3.0 Absolute Lymphocytes 2.2 Absolute Monocytes 0.6 Absolute Eosinophils 0.2 Absolute Basophils 0.1 Sodium 134.6 L Potassium 4.2 Chloride 101 Carbon Dioxide 26 Anion Gap 8 BUN 12 Creatinine 0.40 L Est GFR ( Amer) > 60 Est GFR (Non-Af Amer) > 60 Glucose 270 H Calcium 8.9 Magnesium 1.9 Impressions: Chest X-Ray 04/22/17 00:00 IMPRESSION: NO ACUTE RADIOGRAPHIC FINDING IN THE CHEST. Assessment & Plan - Diagnosis (1) New onset type 1 diabetes mellitus, uncontrolled Is this a current diagnosis for this admission?: YesPlan: Patient was on lantus now 70/30. We will transition now to lantus for discharge. We have increased the dose and added short acting humalog prior to meals and sliding scale coverage. (2) DKA (diabetic ketoacidoses) Qualifiers: Diabetes mellitus type: due to underlying condition Diabetes mellitus complication detail: without coma Qualified Code(s): E08.10 - Diabetes mellitus due to underlying condition with ketoacidosis without coma Is this a current diagnosis for this admission?: YesPlan: Patient is presently off IV insulin. She was fluid resuscitated this is stopped as well. Bicarb is now normal. She was however this would be changed to insulin 70/30, due to patient not having any health insurance coverage. The Department of Health no longer assists patient without insurance with their diabetic medication or testing materials. (3) Dehydration Is this a current diagnosis for this admission?: YesPlan: Resolved with IV hydration. She is tolerating a regular diabetic diet (4) Tachycardia Is this a current diagnosis for this admission?: YesPlan: Resolved secondary to dehydration (5) DVT prophylaxis Is this a current diagnosis for this admission?: Yes (6) Protein-calorie malnutrition, moderate Is this a current diagnosis for this admission?: YesPlan: Patient claims she eats well. She states she has lost 20 lbs unintentionally over the last month She states she has always been small. We will continue to monitor - Time Time Spent with patient: 25-34 minutes Critical Time spent with patient: 15-24 minutes Medications reviewed and adjusted accordingly: Yes Anticipated discharge: Home Within: within 24 hours
[2017-04-25] MEDS ORDERED: INSULIN LISPRO 100 UNIT/ML 3 ML VIAL SUBCUT ONE (18:00)
[2017-04-25] MEDS: INSULIN GLARGINE,HUM.REC.ANLOG 300 UNIT/3 ML INSULN.PEN SUBCUT SCH (21:49)
[2017-04-26] MEDS ORDERED: INSULIN LISPRO 100 UNIT/ML 3 ML VIAL SUBCUT SCH (08:00)
[2017-04-26] MEDS: INSULIN LISPRO 100 UNIT/ML 3 ML VIAL SUBCUT PRN ×2 (08:12→13:14)
[2017-04-26] MEDS: INSULIN LISPRO 100 UNIT/ML 3 ML VIAL SUBCUT SCH ×2 (08:12→13:14)
[2017-04-26 08:32] VITALS: BP 87/50
[2017-04-26] MEDS: HEPARIN SOD (PORCINE) 5,000 UNIT/ML 1 ML SYRINGE SUBCUT SCH (09:17)
[2017-04-26] MEDS: DOCUSATE SODIUM 100 MG CAPSULE PO SCH (09:17)
[2017-04-26] MEDS: INSULIN GLARGINE,HUM.REC.ANLOG 300 UNIT/3 ML INSULN.PEN SUBCUT SCH (09:24)
--- NOTE | 2017-04-26 14:37 | PDOC DISCHARGE SUMMARY ---
General - Admit/Disc Date/PCP Admission Date/Primary Care Provider: 04/22/17 04:04 Discharge Date: 04/26/17 - Discharge Diagnosis (1) New onset type 1 diabetes mellitus, uncontrolled Is this a current diagnosis for this admission?: YesSummary: Patient is discharge on Lantus 20 units bid. Lispro 8 units prior to meals, and sliding scale coverage tid. She will follow up with primary care provider in one week. Refer to endocrinology, Dr Mckeon at next available. She was seen multiple times by diabetic nurse educator and diabetic skate hop. (2) Protein-calorie malnutrition, moderate Is this a current diagnosis for this admission?: YesSummary: Patient has had a 20 lb weight loss over the last 6 months most likely due to hyperglycemia (3) DKA (diabetic ketoacidoses) Is this a current diagnosis for this admission?: YesSummary: Resolved (4) Dehydration Is this a current diagnosis for this admission?: YesSummary: Resolved (5) Tachycardia Is this a current diagnosis for this admission?: YesSummary: Resolved (6) DVT prophylaxis Is this a current diagnosis for this admission?: Yes - Additional Information Resuscitation Status: Full Code Discharge Activity: Activity As Tolerated Home Medications: Acetaminophen [Tylenol Soln 325 mg/10.15 ml Udcup] 650 mg PO Q4HP PRN udc 04/26 Insulin Glargine,Hum.rec.anlog [Lantus Insulin 100 Unit/mL] 20 unit SUBCUT Q12 # 10 insuln.pen 04/26/17 Insulin Lispro [Humalog Insulin (Lispro) 100 unit/mL] 8 unit SUBCUT AC #100 unit 04/26/17 Isopropyl Alcohol [Alcoh-Wipe] 1 each ASDIR PRN #100 towelette 04/26/17 Pen Needle, Diabetic [Insulin Pen Needle] 1 each ASDIR PRN #10 dis.needle History of Present Illness Patient complains of: Nausea, epigastric pain and weight loss History of Present Illness: REJI JOHNSON is a 21 year old female with past medical history remarkable basically only for eczema, who presents to the emergency room for evaluation of approximately 1 week history of nausea, epigastric pain, frequent belching, along with a recent unintentional 20 pound weight loss, despite good appetite. No personal or family history of diabetes mellitus. Patient has been discussed with emergency room nurse practitioner who evaluated the patient. Abdominal discomfort increases occasionally with certain movements. She denies any "sore spots" anywhere on her body. No vomiting, diarrhea or dysuria, or cough. She is currently resting quietly, pain-free. Hospital Course Hospital Course: Patient was admitted to [facility] on telemetry. She was placed on IV insulin and DKA protocol. She was aggressively rehydrated with normal saline and then D5 normal half-normal saline for a total of 5 L. Her anion gap closed approximately 12 hours later. Her acidosis resolved. She had no further abdominal pain, nausea or dysuria. She was started on Lantus insulin the second hospital day, her IV insulin was discontinued. She had diabetic education and diabetic nutrition educational sessions. Patient has no prior exposure to diabetic testing or giving herself insulin. Diabetic education to her multiple times to assist with diabetic testing and insulin administration. She was counseled on signs and symptoms of hypo-and hyperglycemia. Preprandial lispro insulin was added. Insulin was titrated upward. Her HbA1c was 13.9. Today her Chemstrips have been less than 200 for the last 24 hours with no lows. She feels ready for discharge. Physical Exam Vital Signs: Temp Pulse Resp BP Pulse Ox 98.3 F 82 16 87/50 L 100 04/26/17 04:57 04/26/17 07:00 04/26/17 04:57 04/26/17 08:31 04/26/17 04:57 Intake & Output 04/25/17 04/26/17 04/27/17 06:59 06:59 06:59 Intake Total 1201 603 Output Total 4700 1300 Balance -3499 -697 Weight 41.6 kg General appearance: PRESENT: no acute distress, thin, well-developed Head exam: PRESENT: atraumatic, normocephalic Eye exam: PRESENT: conjunctiva pink, EOMI, PERRLA. ABSENT: scleral icterus Ear exam: PRESENT: normal external ear exam Mouth exam: PRESENT: moist, tongue midline Neck exam: ABSENT: carotid bruit, JVD, lymphadenopathy, thyromegaly Respiratory exam: PRESENT: clear to auscultation michelle. ABSENT: rales, rhonchi, wheezes Cardiovascular exam: PRESENT: RRR. ABSENT: diastolic murmur, rubs, systolic murmur Pulses: PRESENT: normal dorsalis pedis pul Vascular exam: PRESENT: normal capillary refill GI/Abdominal exam: PRESENT: normal bowel sounds, soft. ABSENT: distended, guarding, mass, organolmegaly, rebound, tenderness Rectal exam: PRESENT: deferred Extremities exam: PRESENT: full ROM. ABSENT: calf tenderness, clubbing, pedal edema Neurological exam: PRESENT: alert, awake, oriented to person, oriented to place , oriented to time, oriented to situation, CN II-XII grossly intact. ABSENT: motor sensory deficit Psychiatric exam: PRESENT: appropriate affect, normal mood. ABSENT: homicidal ideation, suicidal ideation Skin exam: PRESENT: dry, intact, warm. ABSENT: cyanosis, rash Results Laboratory Results: 04/25/17 04:28 04/25/17 04:28 Impressions: Chest X-Ray 04/22/17 00:00 IMPRESSION: NO ACUTE RADIOGRAPHIC FINDING IN THE CHEST. Qualifiers P[place]INT BEING DISCHARGED WITH ANY OF THE FOLLOWING DIAGNOSIS?: No Plan Discharge Plan: Home with significant other Time Spent: Less than 30 Minutes
== END 2017-04-26 16:00 | disposition home or self-care (01) | DRG 638 ==
LOC: ER 22:51 → UNDOADMIN 04-22 03:07 → EH 04-22 03:07 → 3W 04-22 06:04 → EH 04-22 06:04
PROVIDERS: ADMIT Family Medicine; ATTEND Family Medicine
DX: E10.10 Type 1 diabetes mellitus with ketoacidosis without coma (principal); E44.0 Moderate protein-calorie malnutrition; E86.0 Dehydration; L30.9 Dermatitis, unspecified; R63.4 Abnormal weight loss; Z79.4 Long term (current) use of insulin; Z90.49 Acquired absence of other specified parts of digestive tract; Z83.3 Family history of diabetes mellitus; Z82.49 Family history of ischemic heart disease and other diseases of the circulatory system; Z68.22 Body mass index [BMI] 22.0-22.9, adult
CPT/HCPCS: 36415; 71010; 80048; 80053; 80061; 80307; 81001; 81025; 82803; 82962; 83036; 83690; 83735; 84443; 85025; 87040; 87086; 99291; J0696; J1644; J1815; J2405; J3475; J3480; J3490; J7030; J7060; S0164

== ENCOUNTER 2017-05-16 05:37 | Emergency (ER) | payer OTHER, MEDICAID ==
[2017-05-16 05:48] VITALS: BP 109/67
== END 2017-05-16 06:36 | disposition left against medical advice (07) ==
LOC: ER 05:37
DX: Z53.21 Procedure and treatment not carried out due to patient leaving prior to being seen by health care provider (principal)

== ENCOUNTER 2018-04-29 08:29 | Emergency (ER) | payer BC, MEDICAID, OTHER ==
--- NOTE | 2018-04-29 09:11 | ER Document Report ---
ED General - General Chief Complaint: Vaginal Bleeding Stated Complaint: VAGINAL BLEEDING Time Seen by Provider: 04/29/18 08:57 Mode of Arrival: Ambulatory Information source: Patient Notes: 22-year-old female presents to the emergency department with complaints of vaginal bleeding for the last 18 days. Patient states that she started her normal menstrual cycle and it has continued since then. She states that she usually has a her menstrual cycle lasting about 7 days. Patient states that she is having mild vaginal bleeding. She is also having associated light cramping in the suprapubic region. She states that this is her normal. Cramping. Patient does not follow-up within [facility]. Patient states that she is not currently on any control. She denies any history of . Patient denies any vaginal discharge or history of STDs. TRAVEL OUTSIDE OF THE [place] IN LAST 30 DAYS: No - HPI Onset: Last week Onset/Duration: Gradual Quality of pain: Cramping Severity: Mild Associated symptoms: None Exacerbated by: Denies Relieved by: Denies Similar symptoms previously: No Recently seen / treated by doctor: No - Related Data Allergies/Adverse Reactions: No Known Allergies Allergy (Verified 04/29/18 08:33) Past Medical History - Social History Smoking Status: Never Smoker Chew tobacco use (# tins/day): No Frequency of alcohol use: None Drug Abuse: None Family History: CAD, DM, Hypertension Patient has suicidal ideation: No Patient has homicidal ideation: No - Past Medical History Cardiac Medical History: Denies: Hx Congestive Heart Failure, Hx DVT, Hx Heart Attack, Hx Hypercholesterolemia, Hx Hypertension, Hx Pulmonary Embolism Pulmonary Medical History: Denies: Hx Asthma, Hx COPD Neurological Medical History: Denies: Hx Seizures Endocrine Medical History: Reports: Hx Diabetes Mellitus Type 1. Denies: Hx Hyperthyroidism, Hx Hypothyroidism Renal/ Medical History: Denies: Hx Peritoneal Dialysis GI Medical History: Denies: Hx Cirrhosis, Hx Gastroesophageal Reflux Disease, Hx Hepatitis Musculoskeltal Medical History: Denies Hx Arthritis Skin Medical History: Reports Hx Eczema - Mild Psychiatric Medical History: Denies: Hx Depression Infectious Medical History: Denies: Hx C-Diff, Hx Hepatitis, Hx MRSA Past Surgical History: Reports: Hx Appendectomy, Hx Tonsillectomy - Immunizations Immunizations up to date: Yes Hx Diphtheria, Pertussis, Tetanus Vaccination: Yes Review of Systems - Review of Systems Constitutional: No symptoms reported EENT: No symptoms reported Cardiovascular: No symptoms reported Respiratory: No symptoms reported Gastrointestinal: No symptoms reported Genitourinary: No symptoms reported Female Genitourinary: Heavy/abnormal periods Musculoskeletal: No symptoms reported Skin: No symptoms reported Hematologic/Lymphatic: No symptoms reported Neurological/Psychological: No symptoms reported -: Yes All other systems reviewed and negative Physical Exam - Vital signs Vitals: Temp Pulse Resp BP Pulse Ox 98.3 F 68 18 108/61 100 04/29/18 08:35 04/29/18 08:35 04/29/18 08:35 04/29/18 08:35 04/29/18 08:35 Interpretation: Normal - Notes Notes: PHYSICAL EXAMINATION: GENERAL: Well-appearing, well-nourished and in no acute distress. HEAD: Atraumatic, normocephalic. EYES: Pupils equal round and reactive to light, extraocular movements intact, conjunctiva are normal. ENT: Nares patent, oropharynx clear without exudates. Moist mucous membranes. NECK: Normal range of motion, supple without lymphadenopathy LUNGS: Breath sounds clear to auscultation bilaterally and equal. No wheezes rales or rhonchi. HEART: Regular rate and rhythm without murmurs ABDOMEN: Soft, nontender, nondistended abdomen. No guarding, no rebound. No masses appreciated. Female : no vaginal bleeding. No vaginal discharge. No CMT. No ovarian tenderness to palpation. Musculoskeletal: Normal range of motion, no pitting or edema. No cyanosis. NEUROLOGICAL: Cranial nerves grossly intact. Normal speech, normal gait. Normal sensory, motor exams PSYCH: Normal mood, normal affect. SKIN: Warm, Dry, normal turgor, no rashes or lesions noted. Course - Re-evaluation Re-evalutation: 04/29/18 10:25 Physical exam is unremarkable for blood or vaginal discharge. No cervical motion tenderness. No abdominal tenderness to palpation. Labs obtained. Hemoglobin is within normal limits. Pelvic labs are pending. Patient does not want treated for STDs at this time. I will refer the patient to [facility]. I instructed the patient to continue taking her medications as directed, to follow -up with the [facility] this week, and to return to the emergency department for worsening symptoms. Patient is agreeable to plan of care. - Vital Signs Vital signs: Temp Pulse Resp BP Pulse Ox 98.3 F 68 18 108/61 100 04/29/18 08:35 04/29/18 08:35 04/29/18 08:35 04/29/18 08:35 04/29/18 08:35 - Laboratory Result Diagrams: 04/29/18 09:35 04/29/18 09:35 Laboratory results interpreted by me: 04/29/18 04/29/18 09:35 09:35 Potassium 5.2 H Glucose 296 H Urine Glucose (UA) >=500 H Urine Ketones 20 H Discharge - Discharge Clinical Impression: Vaginal bleeding between periods Condition: Good Disposition: HOME, SELF-CARE Instructions: Vaginal Bleeding ([facility]) Referrals: BILL RODRIGEZ MD [Primary Care Provider] - Follow up as needed KELLEY MAGALLANES MD [ACTIVE STAFF] - Follow up as needed
[2018-04-29 10:04] LABS: APPEARANCE,URINE CLEAR; BILIRUBIN,URINE NEGATIVE (NEGATIVE); COLOR,URINE STRAW; GLUCOSE, URINE >=500 mg/dL (NEGATIVE); KETONES,URINE 20 mg/dL (NEGATIVE); LEUKOCYTE ESTERASE,URINE NEGATIVE (NEGATIVE); NITRITE,URINE NEGATIVE (NEGATIVE); PROTEIN,URINE NEGATIVE (NEGATIVE); UROBILINOGEN,URINE NEGATIVE mg/dL (<2.0)
[2018-04-29 10:07] LABS: T.VAGINALIS (WET MOUNT) NO TRICHOMONAS SEEN; WBCS (WET MOUNT) FEW WBCS SEEN; YEAST (WET MOUNT) NO YEAST SEEN
[2018-04-29 10:12] LABS: ABSOLUTE EOSINOPHILS # (AUTO) 0.1 10^3/uL (0.0-0.6); ABSOLUTE LYMPHOCYTES (AUTO) 1.6 10^3/uL (0.5-4.7); ABSOLUTE MONOCYTES (AUTO) 0.4 10^3/uL (0.1-1.4); ABSOLUTE NEUT (AUTO) 3.7 10^3/uL (1.7-8.2); BASOPHILS % (AUTO) 0.8 % (0-2); EOSINOPHILS % (AUTO) 2.5 % (0-6); HEMATOCRIT 41.1 % (36.0-47.0); HEMOGLOBIN 14.5 g/dL (12.0-15.5); LYMPHOCYTES % (AUTO) 27.5 % (13-45); MEAN CORPUSCULAR HEMOGLOBIN 32.8 pg (27.0-33.4); MEAN CORPUSCULAR HGB CONC 35.3 g/dL (32.0-36.0); MEAN CORPUSCULAR VOLUME 93 fl (80-97); PLATELET COUNT 249 10^3/uL (150-450); RED BLOOD COUNT 4.42 10^6/uL (3.72-5.28); RED CELL DISTRIBUTION WIDTH 13.1 % (11.5-14.0); SEGMENTED NEUTROPHILS % (AUTO) 62.2 % (42-78); TOTAL CELLS COUNTED % (AUTO) 100 %; WHITE BLOOD COUNT 5.9 10^3/uL (4.0-10.5)
[2018-04-29 10:18] LABS: ALANINE AMINOTRANSFERASE 16 U/L (9-52); ALBUMIN 4.4 g/dL (3.5-5.0); ALKALINE PHOSPHATASE 59 U/L (38-126); ANION GAP 10 (5-19); ASPARTATE AMINO TRANSFERASE 16 U/L (14-36); BILIRUBIN,DIRECT 0.3 mg/dL (0.0-0.4); BILIRUBIN,TOTAL 0.5 mg/dL (0.2-1.3); BLOOD UREA NITROGEN 14 mg/dL (7-20); CALCIUM 9.6 mg/dL (8.4-10.2); CARBON DIOXIDE 27 mmol/L (22-30); CHLORIDE 104 mmol/L (98-107); GLUCOSE 296 mg/dL (75-110); POTASSIUM 5.2 mmol/L (3.6-5.0); SODIUM 141.2 mmol/L (137-145); TOTAL PROTEIN 7.3 g/dL (6.3-8.2)
[2018-04-29 10:42] VITALS: BP 104/59
[2018-04-29 11:33] LABS: CHLAM PCR NOT DETECTED (NOT DETECT); GON PCR NOT DETECTED (NOT DETECT)
== END 2018-04-29 10:40 | disposition home or self-care (01) ==
LOC: ER 08:29
DX: N93.9 Abnormal uterine and vaginal bleeding, unspecified (principal); R10.30 Lower abdominal pain, unspecified; E10.9 Type 1 diabetes mellitus without complications
CPT/HCPCS: 36415; 80053; 81001; 81025; 85025; 87210; 87491; 87591; 99284